=== PATIENT | male | born 2000 | race Caucasian/White ===

== ENCOUNTER 2021-08-12 21:29 | Emergency (ER) | payer OTHER ==
[~2021-08-12] VITALS: Ht 167.6 cm; Wt 57.6 kg
--- NOTE | 2021-08-12 21:34 | NUR ---
20 y/o M [employer] WORK FOR SEIZURE. [place] STATES HES HAD A SEIZURE BUT NO DIAGNOSIS OF EPILEPSY. HE WAS AT WORK AND FELL NOTICD BY [employer]. PT INCONTINENT ON SCENE, A&OX1 AT SCENE NOW PT OS A&OX2. SKIN IS PINK/WARM/DIAPHORETIC; LUNGS CLEAR BL; HR EVEN AND REGULAR; PT DENIES ANY FEVER, CP, SOB, OR COUGH AT THIS TIME; PATIENT STATES PAIN OF 0/10 AT THIS TIME; VSS; pt states he smokes weed,tobacco, and drinks socially PMH: denies allergies: denies
[2021-08-12 21:35] VITALS: BP 117/68
--- NOTE | 2021-08-12 21:35 | NUR ---
BIBA TAKEN TO BED #8
[2021-08-12 21:56] LABS: BASOPHILS # (AUTO) 0.1 K/uL (0.00-0.22); BASOPHILS % (AUTO) 0.5 % (0.0-2.0); EOSINOPHILS % (AUTO) 0.2 % (0.0-4.0); HEMATOCRIT 50.1 % (36-52); HEMOGLOBIN 16.6 g/dL (12.0-18.0); LYMPHOCYTES % (AUTO) 35.2 % (20.5-51.1); MEAN CORPUSCULAR HEMOGLOBIN 29 pg (27-31); MEAN CORPUSCULAR HGB CONC 33 g/dL (33-37); MEAN CORPUSCULAR VOLUME 86.9 fL (80-94); MONOCYTES # (AUTO) 0.9 K/uL (0.8-1.0); MONOCYTES % (AUTO) 8.2 % (1.7-9.3); NEUTROPHILS # (AUTO) 6.4 K/uL (1.8-7.7); NEUTROPHILS % (AUTO) 55.9 % (42.2-75.2); PLATELET COUNT (AUTO) 225 K/uL (140-450); RED BLOOD CELL COUNT(AUTO) 5.77 MIL/uL (4.20-6.10); RED CELL DISTRIBUTION WIDTH 12.9 % (11.6-13.7); WHITE BLOOD COUNT (AUTO) 11.4 K/uL (4.5-11.0)
--- NOTE | 2021-08-12 22:07 | NUR ---
PT TAKEN TO CT
[2021-08-12 22:21] LABS: CARBON DIOXIDE 14.4 mmol/L (21-32); CREATININE 1.6 mg/dL (0.6-1.3); POTASSIUM 3.4 mmol/L (3.5-5.1)
--- NOTE | 2021-08-12 22:34 | NUR ---
ERMD AT BEDSIDE
[2021-08-12] MEDS ORDERED: KEP500 PO (22:50)
[2021-08-12] MEDS ORDERED: levETIRAcetam 1,000 MG in NACL 0.9% 100 ML IV ONE (22:50)
[2021-08-12] MEDS ORDERED: levETIRAcetam 100 MG/ML VIAL IV ONE (22:54)
[2021-08-12 23:00] VITALS: BP 125/61
--- NOTE | 2021-08-12 23:00 | NUR ---
Patient discharged with v/s stable. Written and verbal after care instructions given and explained. Patient alert, oriented and verbalized understanding of instructions. Ambulatory with steady gait. All questions addressed prior to discharge. ID band removed. Patient advised to follow up with PMD. Rx nilay GIBSON given. Opportunity to ask questions provided and answered.
--- NOTE | 2021-08-13 05:14 | NUR ---
The patient's care was reviewed and supervised by Neelima Sen RN.
== END 2021-08-12 23:00 | disposition home or self-care (01) ==
LOC: MED 21:29
DX: R56.9 Unspecified convulsions (principal)
CPT/HCPCS: 36415; 70450; 71045; 80048; 85025; 93005; 96365; 99285; J1953; Q0092